=== PATIENT | male | born 1965 | race Caucasian/White ===

== ENCOUNTER 2017-02-25 04:09 | Emergency (ER) | payer BC ==
[~2017-02-25] VITALS: Ht 188 cm; Wt 95.5 kg
[2017-02-25 04:13] VITALS: BP 136/93
[2017-02-25] MEDS ORDERED: AMOX500C PO (07:06)
== END 2017-02-25 07:18 | disposition home or self-care (01) ==
LOC: M ED 04:09
DX: H66.002 Acute suppurative otitis media without spontaneous rupture of ear drum, left ear (principal)

== ENCOUNTER → 2018-04-19 | Outpatient (CLI) | payer BC ==
[~2018-04-19] MED LIST: AMOX500C PO
--- NOTE | 2018-04-19 11:22 | REP ---
MR IACS WITHOUT AND WITH CONTRAST: HISTORY: Left hearing loss. CONTRAST: ProHance 19 mL Several punctate areas of increased signal intensity on T2-weighted images are present in the subcortical white matter and left cerebellum. This represents small vessel ischemic disease. There is no intraparenchymal hemorrhage, infarct, mass or midline shift. There is no abnormal enhancement. A small developmental venous anomaly is present in the anterior left parietal lobe. The ventricular system is normal in appearance. There is no extracerebral collection. There is no cerebellopontine angle mass. The inner ear structures are normal in appearance. Increased signal intensity on T1 and T2-weighted images is present in the left middle ear cavity and mastoid air cells. This most likely represents inspissated mucosal thickening. The right mastoid air cells are clear. A retention cyst is present in the right maxillary sinus. Minimal mucosal thickening is present in the left maxillary sinus. IMPRESSION: 1. Minimal small vessel ischemic disease. 2. There is increased signal intensity on T1 and T2-weighted images in the left middle ear cavity and mastoid air cells most likely representing inspissated mucosal thickening. Electronically Signed by Remi Busby MD 04/19/2018 11:40 A
== END ==
LOC: M PLARAD 08:08
PROVIDERS: ATTEND Otolaryngology
DX: H90.A22 Sensorineural hearing loss, unilateral, left ear, with restricted hearing on the contralateral side (principal)

== ENCOUNTER → 2021-12-23 | Outpatient (REF) | payer BC | LOC: M LAB REF 15:23 | PROVIDERS: ATTEND Physician Assistant Medical | DX: H60.63 Unspecified chronic otitis externa, bilateral (principal) ==